=== PATIENT | female | born 1980 | race Caucasian/White ===

== ENCOUNTER 2021-05-15 09:22 | Emergency (ER) | payer OTHER, SELFPAY ==
--- NOTE | ~2021-05-15 | XR_ITS ---
EXAMINATION: XR knee LT 3V DATE: 05/15/2021 09:57 INDICATION: Left knee pain TECHNIQUE: Three views of the left knee were obtained. COMPARISON: 04/22/2014 FINDINGS: Alignment is normal. No fracture or osteochondral lesion. Joint spaces are normal with no e rosions. No joint effusion/synovitis. Soft tissues are unremarkable. IMPRESSION: 1. No acute osseous abnormality. Reviewed, dictated and finalized at location A.
[2021-05-15 09:23] VITALS: BP 136/68; PULSE 86; RESP 20; TEMP 36.2; O2SAT 100
[2021-05-15] MEDS: IBUPROFEN 600 MG TABLET PO (10:34)
--- NOTE | 2021-05-15 11:07 | ED.GENADULT ---
HPI - General Adult General Chief complaint: Extremity Injury, Lower Stated complaint: L KNEE PAIN Time Seen by Provider: 05/15/21 10:03 Source: patient, family and RN notes reviewed Mode of arrival: ambulatory Limitations: no limitations History of Present Illness HPI narrative: Patient is a 41-year-old female who presents to emergency department for evaluation of left knee injury was exercising when she felt a pop in the left knee has since had aching pain to the lateral and posterior aspect of the knee worse with weightbearing and activity patient denies other injuries or complaints has not had anything for pain presents per private vehicle Related Data Home Medications Medication Instructions Recorded Confirmed bupropion HCl mg PO 05/15/21 montelukast mg 05/15/21 Allergies Allergy/AdvReac Type Severity Reaction Status Date / Time No Known Allergies Allergy Verified 05/15/21 09:45 Review of Systems Review of Systems: All systems reviewed & are unremarkable except as noted in HPI and below PMFSH Surgical History Surgical History (Updated 05/15/21 @ 11:08 by Skyler Mckeon PA-C) H/O section H/O tubal ligation Social History Social History (Updated 05/15/21 @ 11:09 by Skyler Mckeon PA-C) Smoking status: Never smoker Gender identity (if verbalized by the patient): Female Exam Narrative: Exam Narrative: GENERAL: Well-appearing, well-nourished, and in no acute distress. HEAD: Normocephalic, atraumatic. EYES: PERRLA and EOMI. ENT: Nares clear, no rhinorrhea or epistaxis. Mucous membranes moist. CHEST: Clear to auscultation. No respiratory distress. No wheezes rales or rhonchi HEART: Regular rate and rhythm. No murmur heard. EXTREMITIES: Tenderness of the left knee joint no deformities noted SKIN: Warm, dry, no rash. NEURO: No focal deficits. Alert and oriented x3. Cranial nerves II through XII grossly intact. Neurovascularly intact PSYCH: Normal mood and affect. Course Course Emergency Course: Patient placed in Ramírez wrap knee immobilizer on crutches with orthopedic follow-up for internal derangement of the left knee neurovascularly intact made aware of x-ray findings agreeing with plan Vital Signs Vital signs: Vital Signs Temperature 97.2 F L 05/15/21 09:23 Pulse Rate 86 05/15/21 09:23 Respiratory Rate 20 05/15/21 09:23 Blood Pressure 136/68 05/15/21 09:23 Pulse Oximetry 100 05/15/21 09:23 Temperature 97.2 F L 05/15/21 09:23 Pulse Rate 86 05/15/21 09:23 Respiratory Rate 20 05/15/21 09:23 Blood Pressure 136/68 05/15/21 09:23 Pulse Oximetry 100 05/15/21 09:23 Medical Decision Making MDM Narrative Medical decision making narrative: Patients injury or pain is consistent with musculoskeletal etiology. No signs of neurological or vascular compromise on exam. Compartments and tisues are soft without signs of compartment syndrome. Pain is felt appropriate for further evaluation on an outpatient basis. Vital Signs Vital Signs: Vital Signs Temperature 97.2 F L 05/15/21 09:23 Pulse Rate 86 05/15/21 09:23 Respiratory Rate 20 05/15/21 09:23 Blood Pressure 136/68 05/15/21 09:23 Pulse Oximetry 100 05/15/21 09:23 Temperature 97.2 F L 05/15/21 09:23 Pulse Rate 86 05/15/21 09:23 Respiratory Rate 20 05/15/21 09:23 Blood Pressure 136/68 05/15/21 09:23 Pulse Oximetry 100 05/15/21 09:23 Imaging Data Radiologist's impression: ITS Impressions Knee X-Ray 05/15/21 10:18 IMPRESSION: 1. No acute osseous abnormality. Discharge Plan Discharge Clinical Impression: Acute internal derangement of knee Patient Disposition: Home, Self-Care Condition: Stable Instructions: Antibiotic Form, Arthralgia (ED) Additional Instructions: Wear brace and use crutches. No weight on the affected leg until able to bear weight without pain. Ice and elevate extremity. Pain medication as needed and directed.
== END 2021-05-15 11:19 | disposition home or self-care (01) ==
PROVIDERS: Emergency Provider Emergency Medicine; PCP Family Medicine
DX: M23.92 Unspecified internal derangement of left knee (principal)
CPT/HCPCS: 73562; 99283; A9270

== ENCOUNTER 2021-07-01 08:30 | Outpatient (RCR) | payer OTHER, SELFPAY ==
--- NOTE | 2021-06-02 09:28 | PTOPEVAL ---
PHYSICAL THERAPY EVALUATION AND PLAN OF CARE Thank you for referring Yun Rock to [facility].? The patient is scheduled to be seen for therapy? 2x/week for 4-6 weeks. Please review, sign, date and return this plan of care SERG. I agree with and certify that the following plan of care is medically necessary. Referring Physician Date Attending Provider: Gregory Crook MD Assessment Status Evaluation Diagnosis left knee pain Onset 05/15/2021 Subjective Information Was doing jumping exercises Query Text:As Reported By Patient/ and felt a pop in the left Family knee. X-ray is normal. She is walking into the clinic with crutches and walking WBAT on the left on her toe. States she does not use the crutches in her home. Without the crutches she still walks on the toe. If she tries to walk flat footed, she feels tingling feeling in the top of the kne. Self Report Pain Assessment Left Knee(s) Reported Pain Level 1 Other Pain Description states it is more uncomfortable than painful Lowest Pain Intensity 1 Greatest Pain Intensity 6 Pain Aggravating Factors Walking Other Pain Aggravating Factors using quad muscle Pain Score Pain Score 1: Self Report Interventions Used Interventions Used By Clinicians Exercise Pain Relief Interventions Used By Elevation,Ice,Medication Patient Lower Extremity Range of Motion Knee Range of Motion Left Knee Flexion Range of Motion - Active 85 Knee Extension Range of Motion - Active 0 Query Text: Lower Extremity Muscle Strength Testing Hip Strength Left Hip Flexion Strength 5 Normal Hip Extension Strength 4 Good Hip Abduction Strength 4 Good Knee Strength Left Knee Flexion Strength 4 Good Knee Extension Strength 3 Fair Palpation Assessment Palpation Palpation moderate hypomobility of patella; mild edema noted in poplitela fossa Gait Assessment Gait Assessment Ambulation Assistive Devices Crutches Weight Bearing Status - Left As Tolerated Weight Bearing Status - Right Full Maintains Weight Bearing Status Yes Ambulation Ability Independent Additional Ambulation Comments adjusted crutches to better fit her height; educatd in step through gait with heel
--- NOTE | 2021-07-01 08:58 | PTOPEVAL ---
PHYSICAL THERAPY DISCHARGE NOTE Thank you for referring Yun Rock to [facility].? Please review, sign, date and return this plan of care SERG. I agree with and certify that the following plan of care is medically necessary. Referring Physician Date Attending Provider: Gregory Crook MD Discharge Diagnosis left knee pain Onset 05/15/2021 Subjective Information After a month of therapy, Yun Query Text:As Reported By Patient/ is still having significant Family pain and swelling. Before she went back to work, she was doing really well with minimal pain and she was walking normally. Since she has been back to work for 2.5 weeks, she has significant increase in pain and swelling daily. She feels better with leuko tape for lateral patellar pull , but otherwise pain and swelling are persistent. States that over the weekend the pain will ease, but she is not doing the activities she would normally be doing. Pain Assessment Timing of Pain Assessment Timing of Pain Assessment Pre-Treatment Pain Scale Pain Scale Used Numeric (1 - 10) Self Report Pain Assessment Left Knee(s) Reported Pain Level 5 Pain Score Pain Score 5: Self Report Interventions Used Interventions Used By Clinicians Exercise,Taping Pain Relief Interventions Used By Elevation,Ice,Medication Patient Lower Extremity Range of Motion Knee Range of Motion Left Knee Flexion Range of Motion - Active 95 Knee Extension Range of Motion - Active 0 Query Text: Lower Extremity Muscle Strength Testing Hip Strength Left Hip Flexion Strength 5 Normal Hip Extension Strength 4+ Good + Hip Abduction Strength 4+ Good + Knee Strength Left Knee Flexion Strength 4+ Good + Knee Extension Strength 4+ Good + Knee Strength Comments 'discomfort' to MMT Palpation Assessment Palpation Palpation minimal hypomobility of patella; mild edema noted in poplitela fossa Gait Assessment Gait Assessment Ambulation Assistive Devices None Weight Bearing Status - Left As Tolerated Weight Bearing Status - Right Full Maintains Weight Bearing Status Yes Ambulation Ability Independent Additional Ambulation Comments mild antalgia noted t
== END 2021-07-01 16:26 | disposition home or self-care (01) ==
LOC: ANHPT 08:30
PROVIDERS: PCP Family Medicine; Visit Provider Orthopaedic Surgery
DX: M25.562 Pain in left knee (principal)
CPT/HCPCS: 97110; 97116; 97140; 97161

== ENCOUNTER 2021-07-08 08:07 | Outpatient (CLI) | payer OTHER, SELFPAY ==
--- NOTE | ~2021-07-08 | MR_ITS ---
EXAMINATION: MR knee LT wo con DATE: 07/08/2021 09:43 INDICATION: Left knee pain TECHNIQUE: Magnetic resonance imaging (MRI) of the left knee was performed without intravenous contra st. Sequences included coronal PD-weighted FSE, coronal PD-weighted FS FSE, sagittal T2-weighted FSE , sagittal PD-weighted FS FSE and axial PD weighted fat saturated FSE. COMPARISON: None. FINDINGS: Medial compartment: Medial meniscus is normal. Articular cartilage is normal. Lateral compartment: Lateral meniscus is normal. Articular cartilage is normal. Patellofemoral compartment: Small region of partial-thickness chondral ulceration and fissuring with minimal irregularity to the underlying cortex at the inferior aspect of the medial trochlea. Remaining patellofemoral cartilage i s normal. Ligaments and tendons: There is a tear of the posterolateral bundle of the anterior cruciate ligament. The anteromedial bund le appears to remain intact. The posterior cruciate ligament is normal. The medial collateral ligamen t and fibular collateral ligament complex are normal. The extensor mechanism is normal. The visualize d medial and lateral hamstring tendons as well as the iliotibial band are normal. Fluid: Small left knee joint effusion. No loose osteochondral bodies identified. Osseous/other: There is mild marrow edema without evident fracture line along the posterior rim of the medial and la teral tibial plateaus which could be related to bone contusion. Scattered geographic regions of patch y red marrow reexpansion with typical distribution in the distal femur and proximal tibia and fibula. No fracture or pathologic marrow replacing process. IMPRESSION: 1. Likely partial anterior cruciate ligament tear involving the posterolateral bundle of the anterior cruciate ligament with likely residual intact anteromedial bundle. 2. 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 3. Mild marrow edema along the posterior rim of the medial and lateral tibial plateau which could rep resent bone contusion without discrete fracture line. Reviewed, dictated and finalized at location B. IMPRESSION: 1. Likely partial anterior cruciate ligament tear involving the posterolateral bundle of the anterior cruciate ligament with likely residual intact anteromedi al bundle. 2. Small region of high-grade chondromalacia along the inferior aspect of the m edial trochlea. 3. Mild marrow edema along the posterior rim of the medial and lateral tibial p lateau which could represent bone contusion without discrete fracture line.
== END 2021-07-08 08:08 | disposition home or self-care (01) ==
LOC: ANHIMG 08:13
PROVIDERS: PCP Family Medicine; Visit Provider Orthopaedic Surgery
DX: M25.562 Pain in left knee (principal); R93.6 Abnormal findings on diagnostic imaging of limbs
CPT/HCPCS: 73721

== ENCOUNTER 2021-09-03 14:46 | Outpatient (CLI) | payer OTHER, SELFPAY ==
--- NOTE | ~2021-09-03 | MM_ITS ---
EXAMINATION: MM screening ashley BI w jazmyn HISTORY: Screening mammogram TECHNIQUE: Craniocaudal and mediolateral oblique 3-D tomosynthesis images were obtained and synthetic 2-D images were generated. CAD analysis was submitted and interpreted. COMPARISON: No prior mammogram is available for comparison at this institution. BREAST PARENCHYMAL COMPOSITION: The breasts are almost entirely fatty. FINDINGS: There is no evidence of suspicious mass, calcification, or architectural distortion to sugg est malignancy in either breast. There has been no suspicious interval change. IMPRESSION: 1. No mammographic evidence of malignancy. 2. Recommend routine screening mammography in one year. BI-RADS Category 1: Negative Reviewed, dictated and finalized at location A.
== END 2021-09-03 14:47 | disposition home or self-care (01) ==
LOC: ANHIMG 14:48
PROVIDERS: PCP Family Medicine; Visit Provider Obstetrics & Gynecology
DX: Z12.31 Encounter for screening mammogram for malignant neoplasm of breast (principal)
CPT/HCPCS: 77063; 77067

== ENCOUNTER 2022-08-05 12:30 | Outpatient (CLI) | payer OTHER, SELFPAY ==
[2022-08-05 13:07] LABS: Basophils Absolute Auto 0.1 K/mm3 (0.0-0.1); Basophils Percent Auto 0.5 % (0.2-1.2); Eosinophils Absolute Auto 0.4 K/mm3 (0-0.3); Eosinophils Percent Auto 4.2 % (0-4.4); Hematocrit 40.4 % (37.0-47.0); Hemoglobin 13.2 g/dL (12.0-15.0); Immature Granulocyte Absolute 0.02 K/mm3 (0.00-0.031); Immature Granulocyte Percent A 0.2 % (0-0.5); Lymphocytes Absolute Auto 3.35 K/mm3 (0.9-3.2); Lymphocytes Percent Auto 31.6 % (18.3-44.2); Mean Corpuscular HGB Conc 32.7 g/dl (32-36); Mean Corpuscular Hemoglobin 29.1 pg (26-34); Mean Corpuscular Volume 89.2 fl (80-100); Mean Platelet Volume 9.3 fl (7.4-10.4); Monocytes Absolute Auto 0.7 K/mm3 (0.1-0.6); Monocytes Percent Auto 6.9 % (2.6-8.5); Neutrophils Percent Auto 56.6 % (45.5-73.1); Platelet Count Result 338 k/mm3 (150-375); Red Blood Count 4.53 M/mm3 (4.2-5.4); Red Cell Distribution Width 12.4 % (11.5-14.5); White Blood Count 10.6 K/mm3 (4.5-10.0)
[2022-08-05 13:21] LABS: Alanine Aminotransferase 18 U/L (6-35); Albumin Level 4.2 g/dL (3.5-5.1); Alkaline Phosphatase 100 U/L (38-126); Anion Gap 11 mmol/L (8-16); Aspartate Amino Transferase 22 U/L (14-36); Bilirubin,Total 0.5 mg/dL (0.2-1.3); Blood Urea Nitrogen 9 mg/dL (7-17); Calcium 9.1 mg/dL (8.4-10.2); Carbon Dioxide 24 mmol/L (22-30); Chloride 102 mmol/L (98-107); Estimated Glomerular Filt Rate > 60; Glucose 86 mg/dL (65-110); Potassium 3.8 mmol/L (3.4-5.0); Sodium 137 mmol/L (137-145)
[2022-08-05 16:29] LABS: Vitamin D 25 Hydroxy 47.2 ng/mL
[2022-08-10 13:05] LABS: Sex Hormone Binding Globulin 34 nmol/L (17-124)
[2022-08-11 10:20] LABS: Testosterone Free 2.9 pg/mL (0.2-5.0)
[2022-08-12 01:07] LABS: Estradiol, Ultrasensitive 61 pg/mL
[2022-08-13 08:24] LABS: FSH 2.2 mIU/mL (***)
[2022-08-14 03:55] LABS: Thyroid Peroxidase Antibodies <1 IU/mL (<9)
== END 2022-08-05 12:31 | disposition home or self-care (01) ==
LOC: ANHLAB 12:32
PROVIDERS: PCP Family Medicine; Visit Provider Obstetrics & Gynecology
DX: N95.1 Menopausal and female climacteric states (principal)
CPT/HCPCS: 36415; 80053; 82306; 82607; 82670; 83001; 84270; 84402; 84439; 84443; 85025; 86376

== ENCOUNTER 2022-08-15 12:46 | Outpatient (CLI) | payer OTHER, SELFPAY ==
[2022-08-17 12:55] LABS: Triiodothyronine T3 Free 3.2 pg/mL (2.3-4.2)
== END 2022-08-15 12:47 | disposition home or self-care (01) ==
PROVIDERS: PCP Family Medicine; Visit Provider Obstetrics & Gynecology
DX: N95.1 Menopausal and female climacteric states (principal)
CPT/HCPCS: 36415; 84481

== ENCOUNTER 2022-09-03 07:27 | Outpatient (CLI) | payer OTHER, SELFPAY ==
[2022-09-07 09:27] LABS: Testosterone Total 18 ng/dL (2-45)
== END 2022-09-03 07:28 | disposition home or self-care (01) ==
LOC: ANHLAB 07:28
PROVIDERS: PCP Family Medicine; Visit Provider Obstetrics & Gynecology
DX: N95.1 Menopausal and female climacteric states (principal)
CPT/HCPCS: 36415; 84403

== ENCOUNTER 2022-10-31 17:04 | Outpatient (CLI) | payer OTHER, SELFPAY ==
[2022-11-03 15:16] LABS: FSH 4.1 mIU/mL (***)
[2022-11-04 12:46] LABS: Testosterone Total 171 ng/dL (2-45)
[2022-11-04 21:27] LABS: Estradiol, Ultrasensitive 63 pg/mL
== END 2022-10-31 17:05 | disposition home or self-care (01) ==
LOC: ANHLAB 17:05
PROVIDERS: PCP Family Medicine; Visit Provider Obstetrics & Gynecology
DX: N95.1 Menopausal and female climacteric states (principal)
CPT/HCPCS: 36415; 82670; 83001; 84403

== ENCOUNTER 2022-11-12 08:37 | Outpatient (CLI) | payer OTHER, SELFPAY ==
--- NOTE | ~2022-11-12 | MM_ITS ---
EXAMINATION: MM screening ashley BI w jazmyn HISTORY: Screening mammogram TECHNIQUE: Craniocaudal and mediolateral oblique 3-D tomosynthesis images were obtained and synthetic 2-D images were generated. CAD analysis was submitted and interpreted. COMPARISON: 09/03/2021 bilateral screening mammogram BREAST PARENCHYMAL COMPOSITION: The breasts are almost entirely fatty. FINDINGS: There is no evidence of suspicious mass, calcification, or architectural distortion to sugg est malignancy in either breast. There has been no suspicious interval change. IMPRESSION: 1. No mammographic evidence of malignancy. 2. Recommend routine screening mammography in one year. BI-RADS Category 1: Negative Reviewed, dictated and finalized at location A. [employer]
== END 2022-11-12 08:38 | disposition home or self-care (01) ==
PROVIDERS: Visit Provider Obstetrics & Gynecology
DX: Z12.31 Encounter for screening mammogram for malignant neoplasm of breast (principal)
CPT/HCPCS: 77063; 77067

== ENCOUNTER 2023-06-06 07:53 | Outpatient (CLI) | payer OTHER, SELFPAY ==
--- NOTE | ~2023-06-06 | MMUS_ITS ---
EXAMINATION: MM diagnostic ashley LT w jazmyn, US breast LT limited HISTORY: Palpable lump of the upper outer quadrant of the left breast TECHNIQUE: Craniocaudal, mediolateral, and mediolateral oblique 3-D tomosynthesis images of the left breast were performed and synthetic 2-D images were generated. CAD analysis was submitted and interpr eted. High resolution limited left breast ultrasound was performed. COMPARISON: 11/12/2022, 09/03/2021 BREAST PARENCHYMAL COMPOSITION: The breasts are almost entirely fatty. FINDINGS: MAMMOGRAPHIC FINDINGS: No suspicious mass, calcification, or architectural distortion are identified to suggest malignancy. There has been no suspicious interval change. No mammographic correlate is identified for the reporte d palpable abnormality of concern. ULTRASOUND: There is no evidence of focal abnormal solid or cystic mass in the vicinity of the reported palpable abnormality of concern. IMPRESSION: 1. No specific mammographic or sonographic correlate is identified for the reported palpable abnormal ity of concern. Further evaluation at this time should be based on clinical assessment. Continued fol low-up physical examination is recommended. 2. Recommend routine screening mammography, due in six months. BI-RADS Category 1: Negative Reviewed, dictated and finalized at location D. IMPRESSION: 1. No specific mammographic or sonographic correlate is identified for the repo rted palpable abnormality of concern. Further evaluation at this time should be based on clinical assessment. Continued follow-up physical examination is shea mmended. 2. Recommend routine screening mammography, due in six months. BI-RADS Category 1: Negative
== END 2023-06-06 07:54 ==
PROVIDERS: PCP Family Medicine; Visit Provider Obstetrics & Gynecology
DX: N63.21 Unspecified lump in the left breast, upper outer quadrant (principal)
CPT/HCPCS: 76642; 77061; 77065; G0279

== ENCOUNTER 2024-04-22 23:50 | Emergency (ER) | payer OTHER, SELFPAY ==
--- NOTE | ~2024-04-22 | CT_ITS ---
CT scan of the Neck Technique: 2.5 mm axial scans were obtained through the neck after intravenous administration of 75 c c Omnipaque 350. Coronal and sagittal reconstructions of the neck were obtained. Dose reduction techn ique was used on this scan by utilizing automated exposure control and iterative reconstruction techn ique. The dose-length product (DLP) was 608.69 mGy-cm. Clinical History: Right pharyngeal swallowing Findings: There is a 1 cm probable early right peritonsillar abscess with surrounding edematous change of the r ight palatine tonsil and mild mass effect upon the airway which is deviated to the left at this level . There is mild infiltration of right parapharyngeal fat. There are mildly prominent bilateral level 2 cervical lymph nodes, presumably reactive. Possible prior resection of the left submandibular gland , which is not clearly visualized. Parotid glands are unremarkable. No prevertebral soft tissue swelling. No retropharyngeal abscess evident. The thyroid gland appears normal. Images of the lung apices reveal no abnormalities. Visualized paran cinda sinuses and mastoid air cells are clear. Impression: 1 cm right peritonsillar abscess with surrounding inflammatory change and mild mass effect upon the a irway. Mildly prominent, presumably reactive, level 2 cervical lymph nodes bilaterally. Reviewed, dictated and finalized at location . Impression: 1 cm right peritonsillar abscess with surrounding inflammatory change and mild mass effect upon the airway. Mildly prominent, presumably reactive, level 2 cervical lymph nodes bilaterally .
[2024-04-22 23:53] VITALS: BP 151/91; PULSE 88; RESP 20; TEMP 36.6; O2SAT 100
[2024-04-23 00:03] VITALS: BP 151/91; PULSE 88; RESP 20; TEMP 36.6; O2SAT 100
[2024-04-23 00:05] VITALS: BP 151/91; PULSE 88; RESP 20; TEMP 36.6; O2SAT 100
[2024-04-23 00:32] VITALS: PULSE 86; RESP 17; O2SAT 99
[2024-04-23 00:36] LABS: Strep Group A RT-PCR NOT DETECTED (Negative)
--- NOTE | 2024-04-23 01:05 | ED.GENADULT ---
HPI - General Adult General Chief complaint: Unspecified Stated complaint: feels like throat is closing Time Seen by Provider: 04/23/24 00:54 History of Present Illness HPI narrative: 43-year-old female presents to the emergency department for right-sided throat pain and swelling that started today. Patient states at 12:00 p.m. today she noticed some pain to her right throat, worse with swallowing. she gargled salt water today without improvement. States she went to bed and woke up around 11:00 p.m. with the sensation that her throat was swollen on the right side which is what prompted her to come to the ED today. She denies recent sick contacts, fever, nausea or vomiting . Triage note states that the patient reported difficulty breathing, however she denies this to me. Related Data Home Medications Medication Instructions Recorded Confirmed cetirizine 10 mg capsule (Zyrtec) 10 mg PO DAILY PRN 05/20/21 10/09/23 acetaminophen 650 mg 650 mg PO Q12H 08/12/21 10/09/23 tablet,extended release (Tylenol Arthritis Pain) acyclovir 200 mg capsule 400 mg PO DAILY PRN 03/14/24 montelukast 10 mg tablet 10 mg PO DAILY 03/14/24 Allergies Allergy/AdvReac Type Severity Reaction Status Date / Time No Known Allergies Allergy Verified 04/23/24 00:30 Review of Systems Review of Systems: CONSTITUTIONAL: Denies fever, chills, or sweats. EYES: Denies visual changes, redness, or discharge. ENT: See HPI CARDIOVASCULAR: Denies chest pain, palpitations, or edema. RESPIRATORY: Denies cough or dyspnea. GASTROINTESTINAL: Denies abdominal pain, nausea, vomiting, or diarrhea. GENITOURINARY: Denies dysuria or hematuria. SKIN: Denies rash or itching. MUSCULOSKELETAL: Denies back pain, joint pain, or myalgia. NEUROLOGIC: Denies headache, numbness, or weakness. PSYCHIATRIC: Denies anxiety or depression. [facility] Past Medical History Medical History Anxiety Asthma Body mass index (BMI) greater than or equal to 40 in adult Chronic asthma without complication Left breast mass Left knee pain Lymph nodes enlarged (~2010) removed on left side Screening for lipid disorders Screening for thyroid disorder Screening mammogram, encounter for Wellness examination Surgical History Surgical History H/O section H/O skin graft age 3 from dog bite H/O tubal ligation Family History Family History Grandparent Diabetes mellitus Cerebrovascular accident H/O ovarian cancer maternal grandmother Father Heart disease Hypertension Acute myocardial infarction Mother Hypertension Osteoporosis Sibling FH: testicular cancer brother Other Non-Hodgkin lymphoma maternal aunt Other Family history of malignant neoplasm Family history of malignant neoplasm of breast Social History Social History Smoking status: Never smoker Second hand tobacco smoke exposure: No Alcohol intake: current Drinks per week: 2 Alcohol use details: social Substance use: never Substance use type: does not use Current Housing: Decline to Answer Concerned About Future Housing: Decline to Answer Difficulty Paying Gas/Electric Bills: Decline to Answer Difficulty Paying for Meds: Decline to Answer Currently Unemployed: Decline to Answer Education: Decline to Answer Difficulty w/ Childcare or Family Care: Decline to Answer Living arrangements: with family Occupation/Education: occupation Additional occupation/education comments: [employer] Gender identity (if verbalized by the patient): Female Sexual Orientation (if Verbalized by the Patient): Straight or Heterosexual Exam Narrative: GENERAL: Well-appearing, well-nourished, and in no acute d
[2024-04-23 01:33] LABS: Basophils Percent Auto 0.4 % (0.2-1.2); Eosinophils Absolute Auto 0.4 K/mm3 (0-0.3); Eosinophils Percent Auto 3.3 % (0-4.4); Hematocrit 43.1 % (37.0-47.0); Hemoglobin 14.1 g/dL (12.0-15.0); Immature Granulocyte Absolute 0.04 K/mm3 (0.00-0.031); Immature Granulocyte Percent A 0.4 % (0-0.5); Lymphocytes Absolute Auto 2.61 K/mm3 (0.9-3.2); Lymphocytes Percent Auto 23.3 % (18.3-44.2); Mean Corpuscular HGB Conc 32.7 g/dl (32-36); Mean Corpuscular Hemoglobin 29.2 pg (26-34); Mean Corpuscular Volume 89.2 fl (80-100); Mean Platelet Volume 9.8 fl (7.4-10.4); Monocytes Absolute Auto 0.9 K/mm3 (0.1-0.6); Monocytes Percent Auto 7.7 % (2.6-8.5); Neutrophils Absolute Auto 7.3 K/mm3 (1.3-6.7); Neutrophils Percent Auto 64.9 % (45.5-73.1); Platelet Count Result 299 k/mm3 (150-375); Red Blood Count 4.83 M/mm3 (4.2-5.4); Red Cell Distribution Width 12.4 % (11.5-14.5); White Blood Count 11.2 K/mm3 (4.5-10.0)
[2024-04-23 01:46] LABS: Alanine Aminotransferase 18 U/L (6-35); Albumin Level 4.2 g/dL (3.5-5.1); Alkaline Phosphatase 88 U/L (38-126); Anion Gap 4 mmol/L (4-12); Aspartate Amino Transferase 24 U/L (14-36); Bilirubin,Total 0.7 mg/dL (0.2-1.3); Blood Urea Nitrogen 13 mg/dL (7-17); Calcium 8.9 mg/dL (8.4-10.2); Carbon Dioxide 27 mmol/L (22-30); Chloride 106 mmol/L (98-107); Estimated CRCL calculation 84 ml/min; Estimated Glomerular Filt Rate > 60; Glucose 100 mg/dL (65-110); Potassium 4.1 mmol/L (3.4-5.0); Sodium 137 mmol/L (137-145)
[2024-04-23 02:04] LABS: Monoscreen Negative (Negative); Negative Monotest Control Negative (Negative); Positive Monotest Control Positive (Positive)
[2024-04-23 02:07] VITALS: BP 124/94; PULSE 80; RESP 18; O2SAT 98
[2024-04-23 02:09] LABS: Influenza A QL RT-PCR Negative (Negative); Influenza B QL RT-PCR Negative (Negative); RSV RNA, RT-PCR Negative (Negative); SARS-CoV-2 RNA PCR Negative (Negative)
[2024-04-23 02:10] LABS: CRP 1.8 mg/dL (<1.0)
[2024-04-23 02:29] LABS: Erythrocyte Sedimentation Rate 29 mm/hr (0-20)
[2024-04-23] MEDS: dexAMETHasone SOD PHOS INJ 10 MG/ML 1 ML VIAL IV PUSH (02:52)
[2024-04-23] MEDS: CLINDAMYCIN HCL 150 MG CAP 300 MG PO (02:53)
== END 2024-04-23 03:00 | disposition home or self-care (01) ==
PROVIDERS: Emergency Provider Physician Assistant; PCP Family Medicine
DX: J36 Peritonsillar abscess (principal); Z20.822 Contact with and (suspected) exposure to COVID-19; J45.909 Unspecified asthma, uncomplicated; Z79.899 Other long term (current) drug therapy
CPT/HCPCS: 36415; 70491; 80053; 85025; 85652; 86140; 86308; 87637; 87651; 96374; 99284; A9270; J1100; Q9967

== ENCOUNTER 2024-05-03 07:53 | Outpatient (CLI) | payer OTHER, SELFPAY ==
--- NOTE | ~2024-05-03 | MM_ITS ---
EXAMINATION: MM screening ashley BI w jazmyn HISTORY: Screening TECHNIQUE: Craniocaudal and mediolateral oblique 3-D tomosynthesis images were obtained and synthetic 2-D images were generated. CAD analysis was submitted and interpreted. COMPARISON: Comparison to multiple prior studies sequentially, with oldest reviewed study dated 08/14. BREAST PARENCHYMAL COMPOSITION: Not dense: There are scattered areas of fibroglandular density. FINDINGS: There is no evidence of suspicious mass, calcification, or architectural distortion to sugg est malignancy in either breast. There has been no suspicious interval change. IMPRESSION: 1. No mammographic evidence of malignancy. 2. Recommend routine screening mammography in one year. BI-RADS Category 1: Negative Reviewed, dictated and finalized at location B.
== END 2024-05-03 07:54 | disposition home or self-care (01) ==
PROVIDERS: PCP Family Medicine; Visit Provider Obstetrics & Gynecology
DX: Z12.31 Encounter for screening mammogram for malignant neoplasm of breast (principal)
CPT/HCPCS: 77063; 77067

== ENCOUNTER 2025-08-29 13:59 | Outpatient (CLI) | payer BC, SELFPAY ==
--- NOTE | ~2025-08-29 | MM_ITS ---
EXAMINATION: MM screening ashley BI w jazmyn HISTORY: Screening TECHNIQUE: Craniocaudal and mediolateral oblique 3-D tomosynthesis images were obtained and synthetic 2-D images were generated. CAD analysis was submitted and interpreted. COMPARISON: 11/12/2022 BREAST PARENCHYMAL COMPOSITION: Not Dense: The breasts are almost entirely fatty. FINDINGS: There is no evidence of suspicious mass, calcification, or architectural distortion to suggest malignancy in either breast. [There has been no significant interval change. IMPRESSION: 1. No mammographic evidence of malignancy. Recommend routine screening mammography in one year. BI-RADS Category 1: Negative Reviewed, dictated, and finalized at Location A. Reviewed, dictated and finalized at location Q. IMPRESSION: 1. No mammographic evidence of malignancy. Recommend routine screening mammogra phy in one year. BI-RADS Category 1: Negative
--- OUTSIDE RECORDS SUMMARY | 2025-08-29 14:04 | XMS_ITS | Data Portability ---
Author Organization [facility] [employer], Main Office Address [address] [place] [address] Assessment No assessment recorded. Plan of Treatment Reminders Order Date Submit Date Provider Last Modified By Organization Details Last Modified Time Details Appointments None recorded. Lab None recorded. Referral None recorded. Procedures None recorded. Surgeries None recorded. Imaging None recorded. Medication Orders phentermine 37.5 mg tablet 2023 024 4 [facility] #[id number], [address], [place], [place], [id number], 4 15:13:07 Saxenda 3 mg/0.5 mL (18 mg/3 mL) subcutaneou s pen injector 2022 023 [id number], [address], [place], [id number], 3 08:25:20 Saxenda 3 mg/0.5 mL (18 mg/3 mL) subcutaneou s pen injector 2022 023 [id number], [address], [place], [id number], 3 10:05:48 Patient TargetsNo targets recorded. Patient InstructionsNo instructions recorded. Reason for Referral None Reported. Results Created Date Observation Date Name Description Value Unit Range Abnormal Flag Note LastModifiedBy Organization Detail LastModifiedTime Result Notes None recorded. Problems Name Problem SNOMED Code Status Onset Date Resolution Date Notes Provider Name and Address Organization Details Recorded Time Amenorrhe a 03982522 Active Not Available [facility] 3 02:48:21 Asthma 376776021 Active Not Available [facility] 3 02:48:21 Blood pressure above reference range 76920514 Active Not Available [facility] 3 02:48:21 Depressiv e disorder 35891263 Active Not Available [facility] 3 02:48:21 Obesity 131163059 Active Not Available [facility] 3 02:48:21 Eczema 72924623 Active Not Available [facility] 3 02:48:21 Seasonal allergy 493954172 Active Not Available [facility] 3 02:48:21 Diabetes mellitus 73693269 Active BORDERLIN E Not Available [facility] 3 02:48:21 Fatigue 60393221 Active Not Available [facility] 3 02:48:21 Kidney stone 15451874 Active Not Available [facility] 3 02:48:21 Pain of left knee joint 45714575550 4107 Active 2022 USMAN Hernandez [address], [place] [address], [place], [address] , [place] 3 08:11:30 Morbid obesity 562760684 Active 2023 USMAN Hernandez [address], [address], [place], [address] , [place] 4 08:43:25 Problem Notes None recorded. Procedures Surgical History Date Name Laterality Status Provider Name and Address Organization Details Recorded Time 1 ligation of bilateral fallopian tubes completed Not Available [facility] 01/11/2023 02:42:54 0 Date of Last Pap Smear completed Not Available [facility] 01/11/2023 02:42:51 6 delivery completed Not Available [facility] 01/11/2023 02:42:54 Skin Graft completed Not Available [facility] 01/11/2023 02:42:54 Imaging Results None recorded. Procedure Notes None recorded. Medical Equipment None Reported. Allergies No known drug allergies Medications Name Sig Start Date Stop Date Status Note LastModified by Organization Details LastModified Time cetirizine 5 mg-pseudoep hedrine ER 120 mg tablet,exte nded release,12h r Take 1 tablet every 12 hours by oral route. active Not Available Not Available No t Available Mirena 21 mcg/24 hr (up to 8 years) 52 mg intrauterin e device Take 1 device by intrauter ine route. active Not Available Not Available No t Available Qvar 80 mcg/actuati on Metered Aerosol oral inhaler active Not Available Not Available Not Available prednisone 10 mg tablet TAKE 6 TABS ON DAY 1 DIRECTED AND DECREASE BY 1 TAB EACH DAY FOR A TOTAL OF 6 DAYS active Not Available Not Available No t Available albuterol sulfate 2.5 mg/3 mL (0.083 %) solution for nebulizatio n USE 1 VIAL VIA NEBULIZER EVERY 6 HOURS NEEDED active Not Available Not Available No t Available azithromyci n 250 mg tablet TAKE 2 TABLETS BY MOUTH TODAY, THEN TAKE 1 TABLET DAILY FOR 4 DAYS active Not Available Not Available No t Available ibuprofen 800 mg tablet 05/05 completed Not Available Not Available Not Available alprazolam 1 mg tablet Take 1 tablet twice a day by oral route as needed. 07/28 completed Not Available Not Available Not Available fluconazole 150 mg tablet TAKE 1 TABLET BY MOUTH EVERY 72 HOURS 06/29 completed Not Available Not Available Not Available glyburide 2.5 mg tablet TAKE 1 TABLET BY MOUTH DAILY 07/28 completed Not Available Not Available Not Available hydrocodone 5 mg-acetamin ophen 325 mg tablet TAKE 1 TO 2 TABLETS BY MOUTH EVERY 4 TO 6 HOURS NEEDED FOR PAIN 07/28 completed Not Available Not Available Not Available Medrol (Juan) 4 mg tablets in a dose pack Take 1 dose pk by oral routeas directed 06/29 completed Not Available Not Available Not Available prednisone 20 mg tablet TAKE 2 TABLETS BY MOUTH EVERY DAY FOR 5 DAYS 06/29 completed Not Available Not Available Not Available prednisone 5 mg tablet 06/29 completed Not Available Not Available Not Available phentermine 15 mg capsule TAKE ONE CAPSULE BY MOUTH EVERY DAY 05/09 completed Not Available Not Available Not Available Zyrtec 10 mg tablet Take 1 tablet every day by oral route. 2016 active zyrte c-d Not Available Not Available Not Available phentermine 37.5 mg tablet TAKE 1 TABLET BY MOUTH DAILY active Not Available Not Available No t Available acetaminoph en 300 mg-codeine 30 mg tablet TAKE 1 OR 2 TABLETS BY MOUTH EVERY 4 TO 6 HOURS NEEDED FOR PAIN 07/28 completed Not Available Not Available Not Available acyclovir 400 mg tablet TAKE 1 TABLET BY MOUTH THREE TIMES DAILY FOR 7 DAYS active Not Available Not Available No t Available sulfamethox azole 800 mg-trimetho prim 160 mg tablet TAKE 1 TABLET BY MOUTH EVERY 12 HOURS 06/29 completed Not Available Not Available Not Available acetaminoph en 500 mg tablet 05/05 completed Not Available Not Available Not Available prednisone 10 mg tablets in a dose pack Take 1 dose pk by oral route for 6 days. active Not Available Not Available No t Available alprazolam 0.25 mg tablet Take 1 tablet twice a day by oral route. active Not Available Not Available No t Available benzonatate 100 mg capsule TAKE ONE CAPSULE BY MOUTH 3 TIMES A DAY NEEDED 04/11 completed Not Available Not Available Not Available nitrofurant oin macrocrysta l 100 mg capsule TAKE 1 CAPSULE BY MOUTH EVERY 12 HOURS WITH FOOD FOR 5 DAYS active Not Available Not Available No t Available triamcinolo ne acetonide 0.1 % topical ointment Apply 1 applicati on twice a day by topical route as needed. active Not Available Not Available No t Available oxycodone 5 mg capsule 05/05 completed Not Available Not Available Not Available docusate sodium 100 mg capsule Take 1 capsule twice a day by oral route. 05/05 completed Not Available Not Available Not Available montelukast 10 mg tablet TAKE 1 TABLET BY MOUTH EVERY DAY active Not Available Not Available No t Available mupirocin 2 % topical ointment APPLY TOPICALLY TO THE AFFECTED AREA TWICE DAILY active Not Available Not Available No t Available prednisone 5 mg tablets in a dose pack Take 1 dose pk as needed by oral route. 06/29 completed Not Available Not Available Not Available ibuprofen 600 mg tablet TAKE 1 TABLET BY MOUTH EVERY 6 HOURS NEEDED FOR PAIN active Not Available Not Available No t Available fluticasone propionate 50 mcg/actuati on nasal spray,suspe nsion SPRAY 2 SPRAYS INTO EACH NOSTRIL EVERY DAY active Not Available Not Available No t Available sertraline 50 mg tablet Take 1 tablet every day by oral route. active Not Available Not Available No t Available ipratropium bromide 0.02 % solution for inhalation 2.5 ML per neb x 1 10/03 completed Not Available Not Available Not Available acyclovir 5 % topical cream APPLY TO THE AFFECTED AREA(S) BY TOPICAL ROUTE 5 TIMES PER DAY 09/23 completed Not Available Not Available Not Available bupropion HCl XL 300 mg 24 hr tablet, extended release TAKE 1 TABLET BY MOUTH EVERY DAY active Not Available Not Available No t Available bupropion HCl XL 150 mg 24 hr tablet, extended release TAKE 1 TABLET BY MOUTH EVERY DAY active Not Available Not Available No t Available Spiriva with HandiHaler 18 mcg and inhalation capsules Inhale 1 capsule every day by inhalatio n route. 04/03 completed Not Available Not Available Not Available nitrofurant oin monohydrate /macrocryst als 100 mg capsule TAKE 1 CAPSULE BY MOUTH EVERY 12 HOURS WITH FOOD FOR 7 DAYS active Not Available Not Available No t Available Flovent HFA 220 mcg/actuati on aerosol inhaler Inhale 1 puff twice a day by inhalatio n route. 02/06 completed Not Available Not Available Not Available Atrovent HFA 17 mcg/actuati on aerosol inhaler INHALE 2 PUFFS BY MOUTH EVERY 6 HOURS active Not Available Not Available No t Available Nortrel 35 (28) 02/06 completed Not Available Not Available Not Available BD Ultra-Fine Short Pen Needle 31 gauge x 5/16 USE DIRECTED WITH SAXENDA PENS active Not Available Not Available No t Available ProAir HFA 90 mcg/actuati on aerosol inhaler INHALE 2 PUFFS BY MOUTH EVERY 4 TO 6 HOURS NEEDED active Not Available Not Available No t Available Symbicort 80 mcg-4.5 mcg/actuati on HFA aerosol inhaler Inhale 2 puffs twice a day by inhalatio n route. 04/11 completed Not Available Not Available Not Available Cyclafem 35 (28) 1 mg-35 mcg tablet TAKE 1 TABLET BY MOUTH EVERY DAY 10/03 completed Not Available Not Available Not Available Saxenda 3 mg/0.5 mL (18 mg/3 mL) subcutaneou s pen injector Start: 0.6 mg SC qd x1wk, then incr. dose by 0.6 mg/day qwk to target 3 mg SC qd; Max: 3 mg/day 2022 active Not Available Not Available Not Avai lable Saxenda active Not Available Not Avail able Not Available Ozempic 0.25 mg or 0.5 mg (2 mg/1.5 mL) subcutaneou s pen injector Inject by subcutane ous route for 56 days. active Not Available Not Available No t Available Breztri Aerosphere 160 mcg-9mcg-4. 8mcg/actuat ion HFA aerosol inhaler Inhale 2 puffs twice a day by inhalatio n route. 2021 active Not Available Not Available Not Avai lable Zepbound 2.5 mg/0.5 mL subcutaneou s pen injector ADMINISTE R 2.5 MG UNDER THE SKIN EVERY WEEK active Not Available Not Available No t Available Vitals Date Recorded Body mass index (BMI) Body height Oxygen saturation Oxygen saturation in Arterial blood by Pulse oximetry Heart rate Body temperature Body weight Systolic And Diastolic Provider Name and Address Organization Details Last Updated DateTime 3 43.4 kg/m2 162.56 cm 97 % 97 % 100 /min 96.6 [degF] 817614. 87 g 126/70 mm[Hg] Not Available [facility] 3 02:45:25 Date Recorded Body height Body mass index (BMI) Body weight Body temperature Heart rate Oxygen saturation Oxygen saturation in Arterial blood by Pulse oximetry Systolic And Diastolic Provider Name and Address Organization Details Last Updated DateTime 4 162.56 cm 43.8 kg/m2 363681. 05 g 98.2 [degF] 90 /min 98.01 % 98.01 % 132/88 mm[Hg] Belinda Person RN [place] [employer] 4 08:38:55 Date Recorded Body mass index (BMI) Body height Oxygen saturation Oxygen saturation in Arterial blood by Pulse oximetry Heart rate Body temperature Body weight Systolic And Diastolic Provider Name and Address Organization Details Last Updated DateTime 2 42.9 kg/m2 162.56 cm 99 % 99 % 85 /min 97.1 [degF] 269354. 09 g 128/70 mm[Hg] Not Available [facility] 3 02:45:24 Date Recorded Body height Body mass index (BMI) Body weight Body temperature Heart rate Oxygen saturation Oxygen saturation in Arterial blood by Pulse oximetry Systolic And Diastolic Provider Name and Address Organization Details Last Updated DateTime 3 162.56 cm 42.2 kg/m2 231028. 72 g 95.8 [degF] 68 /min 99 % 99 % 122/80 mm[Hg] REANNA Christine [facility] [employer] [facility] 3 09:26:33 Date Recorded Body height Body mass index (BMI) Body weight Body temperature Heart rate Oxygen saturation Oxygen saturation in Arterial blood by Pulse oximetry Systolic And Diastolic Provider Name and Address Organization Details Last Updated DateTime 3 162.56 cm 42.4 kg/m2 469343. 32 g 98.5 [degF] 88 /min 97 % 97 % 136/80 mm[Hg] REANNA Christine [place] [employer] [facility] 3 08:06:10 Social History Question Answer Notes LastModified by [facility] Details LastModified Time Tobacco Smoking Status Never Smoker Not Available [facility] 01/11/2023 02:35:25 If You Are , What Was Your Level Of Alcohol Consumption Prior To ? None [id number] Information not available 01/11/2023 What Is Your Level Of Caffeine Consumption? Occasional [id number] Information not available 01/11/2023 In The 14 Days Before Symptom Onset, Have You Had Close Contact With A Laboratory-confirm ed COVID-19 While That Case Was Ill? No [id number] Information not available 01/11/2023 In The 14 Days Before Symptom Onset, Have You Had Close Contact With A Person Who Is Under Investigation For COVID-19 While That Person Was Ill? No [id number] Information not available 01/11/2023 What Type Of Diet Are You Following? REGULAR [id number] Information not available 01/11/2023 Which Illicit Or Recreational Drugs Have You Used? No [id number] Information not available 01/11/2023 Do You Have Any Dietary Restrictions? No [id number] Information not available 01/11/2023 Sex: Unknown Functional Status Question Answer Note LastModified by [facility] Details LastModified Time Do you use any illicit or recreational drugs? No [id number] Information not available 01/11/2023 What is your level of alcohol consumption? Occasional [id number] Information not available 01/11/2023 Do you or have you ever used smokeless tobacco? Never used smokeless tobacco [id number] Information not available 01/11/2023 Do you or have you ever used e-cigarettes or vape? Never used electronic cigarettes [id number] Information not available 01/11/2023 What is your exercise level? Heavy [id number] Information not available 01/11/2023 Mental Status None recorded. Family History Nothing Reported Notes:CAD, no breast/colon/o vary cancer Medical History Condition Response ANXIETY DISORDER Y Gynecological History Statement/Question Response Date of Last Mammogram 09/03/2021 Date of LMP Menses Monthly N Date of Last Pap Smear 03/18/2020 Current Control Method Tubal Ligat ion Breast Problems no Discharge no Obstetrics History GPAL:G 3 P 3 0 0 3 Type Value Full Term 3 Living 3 Total 3 Immunizations Vaccine Type Date Status Note Provider Nam e and Address Organization Details Recorded Time Influenza, split virus, trivalent, PF 3 completed Not Available [facility] 01/11/2023 02:55:30 pneumococcal, unspecified formulation 2 completed Not Available [facility] 01/11/2023 02:55:31 Influenza, split virus, trivalent, preservative 2 completed Not Available [facility] 01/11/2023 02:55:31 Past Encounters Encounter ID Performer Location Encounter Start Date Encounter Closed Date Diagnosis/Indication Diagnosis SNOMED-CT Code Diagnosis ICD10 Code Diagnosis IMO Codes Diagnosis Note [id number] [facility] _ATHENA_M IGRATION_ DEFAULT_1 _1 , 02/03/2021 00:00:00 02/03/2021 10:41:37 [id number] Kalli Ashley MD [facility] Primary Care [address] [address] 05/05/2021 00:00:00 05/11/2021 13:57:38 [id number] Kalli Ashley MD [facility] [address] [place] [address] 09/23/2021 00:00:00 09/23/2021 08:23:43 [id number] CHRISTINE Fuentes [facility] [address] [facility] [address] [place] [address] 06/29/2022 00:00:00 06/29/2022 13:37:10 [id number] CHRISTINE Fuentes [facility] [address] [facility] [address] [place] [address] 11/18/2022 00:00:00 11/18/2022 19:16:11 [id number] USMAN Hernandez [facility] Primary [facility] [address] [facility] [address] [place] [address] 06/29/2023 09:19:06 06/29/2023 09:51:15 Dietary management surveillance 422090330 Z71.3 Encouraged fresh fruits and veggiesInc rease water intakeGet daily exerciseHa s had good results with Saxenda-wi ll reorder [id number] Kalli Ashley MD [facility] Primary [facility] [address] [facility] [address] [place] [address] 07/28/2023 08:00:36 07/28/2023 08:16:49 Dietary management surveillance 442081953 Z71.3 No ASE noted with being on this med, pt also used this in the pastRefill of saxenda providedpt would like to f/u in 3 months Pain of le ft knee joint 1899712105 38696 M25.562 r/t recent injury, pt noted large amount of swelling and painf/u with ortho Dr. Crook's office-cor tisone injection 16Scope likely in the future with Dr. Crook [id number] USMAN Hernandez [facility] Primary [facility] [address] [facility] [address] [place] [address] 12/08/2023 08:25:46 12/08/2023 09:25:24 Morbid obesity 611783177 E66.01 -pt has been doing weight watchers for the last month-also does intermitte nt fasting-akhil briscoe is planning to start going to the gym three times/week -she is wanting to restart phentermin e, used in the past with no ASE noted-refi ll given Health Concerns Section Related Observation LastModified by Organization Detai ls LastModified Time None Recorded Concern Status LastModified by Organization Details LastModified Time None Recorded Advance Directives Directive None Recorded Payers Insurance Date Sequence Insurance Name Policy Number Policy Mast Covered Member ID Mast Member ID Guarantor Name 02/06/2024 1 [employer] [facility] (PPO) Yun Marte [id number] Yun Marte 03/05/2024 1 [employer] (MEDICARE REPLACEMENT/ ADVANTAGE - PPO) Yun Marte [id number] Yun Marte 02/06/2024 1 [employer] (PPO) [id number] Yun Marte [id number] Yun Marte 12/08/2023 1 [employer] (POS) [id number] Neville Marte [id number] Yun Marte 02/06/2024 2 [place] [facility] [employer] Yun Smith [id number] Yun Marte Notes Date Note Type Note Provider Name and Address Organization Details Recorded Time 06/29/2023 text/html Pt is here for f/u r/t weight loss meds Recently went to weight loss clinic in April and was started on Saxenda. No side effects with this medication. No binge eating with this med. Cravings are under control. Would like to restart this med JENNIFER Hernandez-Farooq [address], [address], [place], [address], [place] 06/29/2023 10:06:55 07/28/2023 text/html Pt is here for med f/u JENNIFER Hernandez-C [address], [address], [place], [address], [employer] 07/28/2023 08:27:09 12/08/2023 text/html Pt is here for weight loss med f/u PAWAN HernandezP-C [address], [address], [place], [address], [employer] 12/08/2023 08:53:04 OBGyn Episode No OBEpisode recorded.
== END 2025-08-29 14:00 | disposition home or self-care (01) ==
LOC: ANHFOHIMG 14:02
PROVIDERS: Visit Provider Obstetrics & Gynecology
DX: Z12.31 Encounter for screening mammogram for malignant neoplasm of breast (principal)
CPT/HCPCS: 77063; 77067

== ENCOUNTER 2025-11-12 07:17 | Outpatient (CLI) | payer BC, SELFPAY ==
--- OUTSIDE RECORDS SUMMARY | 2025-11-12 07:21 | XMS_ITS | Data Portability ---
Author Organization [facility], Main Office Address [address] [place] [address] Assessment No assessment recorded. Plan of Treatment Reminders Order Date Submit Date Provider Last Modified By Organization Details Last Modified Time Details Appointments None recorded. Lab None recorded. Referral None recorded. Procedures None recorded. Surgeries None recorded. Imaging None recorded. Medication Orders phentermine 37.5 mg tablet 2023 024 [email or web address] 4 [facility] #[id number], [address], [place], [place], [id number], 4 15:13:07 Saxenda 3 mg/0.5 mL (18 mg/3 mL) subcutaneou s pen injector 2022 023 [facility] #[id number], [address], [place], [id number], 3 08:25:20 Saxenda 3 mg/0.5 mL (18 mg/3 mL) subcutaneou s pen injector 2022 023 [facility] #[id number], [address], [place], [id number], 3 10:05:48 Patient TargetsNo targets recorded. Patient InstructionsNo instructions recorded. Reason for Referral None Reported. Results Created Date Observation Date Name Description Value Unit Range Abnormal Flag Note LastModifiedBy Organization Detail LastModifiedTime Result Notes None recorded. Problems Name Problem SNOMED Code Status Onset Date Resolution Date Notes Provider Name and Address Organization Details Recorded Time Amenorrhe a 34100536 Active Not Available [facility] 3 02:48:21 Asthma 277721744 Active Not Available [facility] 3 02:48:21 Blood pressure above reference range 51929741 Active Not Available [facility] 3 02:48:21 Depressiv e disorder 61605334 Active Not Available [facility] 3 02:48:21 Obesity 455565081 Active Not Available [facility] 3 02:48:21 Eczema 62112345 Active Not Available [facility] 3 02:48:21 Seasonal allergy 717619543 Active Not Available [facility] 3 02:48:21 Diabetes mellitus 66001507 Active BORDERLIN E Not Available [facility] 3 02:48:21 Fatigue 50834442 Active Not Available [facility] 3 02:48:21 Kidney stone 18591179 Active Not Available [facility] 3 02:48:21 Pain of left knee joint 22432215085 4107 Active 2022 USMAN Hernandez [address], [place] [address], [place], [address] , [facility] 3 08:11:30 Morbid obesity 331008877 Active 2023 USMAN Hernandez [address], [address], [place], [address] , [facility] 4 08:43:25 Problem Notes None recorded. Procedures Surgical History Date Name Laterality Status Provider Name and Address Organization Details Recorded Time 1 ligation of bilateral fallopian tubes completed Not Available [facility] 01/11/2023 02:42:54 0 Date of Last Pap Smear completed Not Available [facility] 01/11/2023 02:42:51 6 delivery completed Not Available [facility] 01/11/2023 02:42:54 Skin Graft completed Not Available [facility] 01/11/2023 02:42:54 Imaging Results None recorded. Procedure [...] mass index (BMI) Body height Oxygen saturation Heart rate Body temperature Body weight Systolic And Diastolic Provider Name and Address Organization Details Last Updated DateTime 3 43.4 kg/m2 162.56 cm 97 % 100 /min 96.6 [degF] 724286. 87 g 126/70 mm[Hg] Not Available [facility] 3 02:45:25 Date Recorded Body height Body mass index (BMI) Body weight Body temperature Heart rate Oxygen saturation Systolic And Diastolic Provider Name and Address Organization Details Last Updated DateTime 4 162.56 cm 43.8 kg/m2 449174. 05 g 98.2 [degF] 90 /min 98.01 % 132/88 mm[Hg] Belinda Person RN [place] [facility] 4 08:38:55 Date Recorded Body mass index (BMI) Body height Oxygen saturation Heart rate Body temperature Body weight Systolic And Diastolic Provider Name and Address Organization Details Last Updated DateTime 2 42.9 kg/m2 162.56 cm 99 % 85 /min 97.1 [degF] 082793. 09 g 128/70 mm[Hg] Not Available [facility] 3 02:45:24 Date Recorded Body height Body mass index (BMI) Body weight Body temperature Heart rate Oxygen saturation Systolic And Diastolic Provider Name and Address Organization Details Last Updated DateTime 3 162.56 cm 42.2 kg/m2 587069. 72 g 95.8 [degF] 68 /min 99 % 122/80 mm[Hg] REANNA Christine Kamran [place] [employer] 3 09:26:33 Date Recorded Body height Body mass index (BMI) Body weight Body temperature Heart rate Oxygen saturation Systolic And Diastolic Provider Name and Address Organization Details Last Updated DateTime 3 162.56 cm 42.4 kg/m2 974149. 32 g 98.5 [degF] 88 /min 97 % 136/80 mm[Hg] REANNA Christine - [place] [facility] [employer] 3 08:06:10 Social History Question Answer Notes LastModified by Leo Details LastModified Time Tobacco Smoking Status Never Smoker Not Available [facility] 01/11/2023 02:35:25 If You Are , What Was Your Level Of Alcohol Consumption Prior To ? None [id number] Information not available 01/11/2023 What Is Your Level Of Caffeine Consumption? Occasional [id number] Information not available 01/11/2023 In The 14 Days Before Symptom Onset, Have You Had Close Contact With A Laboratory-confirm ed COVID-19 While That Case Was Ill? No [id number] Information not available 01/11/2023 In The 14 Days Before Symptom Onset, Have You Had Close Contact With A Person Who Is Under Investigation For COVID-19 While That Person Was Ill? No [id number] Information not available 01/11/2023 What Type Of Diet Are You Following? REGULAR [id number] Information not available 01/11/2023 Which Illicit Or Recreational Drugs Have You Used? No [id number] Information not available 01/11/2023 Do You Have Any Dietary Restrictions? No [id number].[id number] Information not available 01/11/2023 Sex: Unknown Functional Status Question Answer Note LastModified by Leo Details LastModified Time Do you use any illicit or recreational drugs? No [id number].[id number] Information not available 01/11/2023 What is your level of alcohol consumption? Occasional [id number] Information not available 01/11/2023 Do you or have you ever used smokeless tobacco? Never used smokeless tobacco [id number].[id number] 0864 Information not available 01/11/2023 Do you or have you ever used e-cigarettes or vape? Never used electronic cigarettes MIGRATION.[id number] 6704 Information not available 01/11/2023 What is your exercise level? Heavy [id number].[id number] 6810 Information not available 01/11/2023 Mental Status None [...] virus, trivalent, PF 3 completed Not Available [facility] 01/11/2023 02:55:30 pneumococcal, unspecified formulation 2 completed Not Available [facility] 01/11/2023 02:55:31 Influenza, split virus, trivalent, preservative 2 completed Not Available [facility] 01/11/2023 02:55:31 Past Encounters Encounter ID Performer Location Encounter Start Date Encounter Closed Date Diagnosis/Indication Diagnosis SNOMED-CT Code Diagnosis ICD10 Code Diagnosis IMO Codes Diagnosis Note [id number] [facility] ic_[facility]way _ATHENA_M IGRATION_ DEFAULT_1 _1 , 02/03/2021 00:00:00 02/03/2021 10:41:37 [id number] Kalli Ashley MD [facility] Primary Care [facility] [address] [place] [address] 05/05/2021 00:00:00 05/11/2021 13:57:38 [id number] [facility] [address] [place] [address] 09/23/2021 00:00:00 09/23/2021 08:23:43 [id number] CHRISTINE Fuentes [facility] Primary Care [facility] [address] [place] [address] 06/29/2022 00:00:00 06/29/2022 13:37:10 [id number] CHRISTINE Fuentes [facility] Primary [facility] [address] [place] [address] 11/18/2022 00:00:00 11/18/2022 19:16:11 [id number] USMAN Hernandez [facility] Primary [facility] [address] [place] [address] 06/29/2023 09:19:06 06/29/2023 09:51:15 Dietary management surveillance 164879105 Z71.3 Encouraged fresh fruits and veggiesInc rease water intakeGet daily exerciseHa s had good results with Saxenda-wi ll reorder [id number] Kalli Ashley MD [facility] Primary Care [facility] [address] [place] [address] 07/28/2023 08:00:36 07/28/2023 08:16:49 Dietary management surveillance 299949739 Z71.3 No ASE noted with being on this med, pt also used this in the pastRefill of saxenda providedpt would like to f/u in 3 months Pain of le ft knee joint 1823934041 69454 M25.562 r/t recent injury, pt noted large amount of swelling and painf/u with ortho Dr. Crook's office-cor tisone injection cope likely in the future with Dr. Crook [id number] USMAN Hernandez [facility] Primary Care [facility] [address] [facility] [facility] [address] [place] [address] 12/08/2023 08:25:46 12/08/2023 09:25:24 Morbid obesity 578664263 E66.01 -pt has been doing weight watchers for the last month-also does intermitte nt fasting-sh e is planning to start going to the [...] Guarantor Name 02/06/2024 1 [facility] (PPO) Yun Marte [id number] Yun Marte 03/05/2024 1 [facility] (MEDICARE REPLACEMENT/ ADVANTAGE - PPO) Yun Marte [id number] Yun Marte 02/06/2024 1 [employer] (PPO) [id number] Yun Marte [id number] Yun Marte 12/08/2023 1 [employer] (POS) [id number] Neville Maret [id number] Yun Marte 02/06/2024 2 [place] [facility] Yun Smith [id number] Yun Marte Notes Date Note Type Note [...] to restart this med JENNIFER Hernandez-Farooq [address], [address] [facility], [place], [address], [employer] [facility] 06/29/2023 10:06:55 07/28/2023 text/html Pt is here for med f/u JENNIFER Hernandez-Farooq [address], [address], [place], [address], [employer] [facility] 07/28/2023 08:27:09 12/08/2023 text/html Pt is here for weight loss med f/u JENNIFER Hernandez-Farooq [address], [address], [place], [address], [employer] [facility] 12/08/2023 08:53:04 OBGyn Episode No OBEpisode recorded.
[2025-11-12 07:38] LABS: Hematocrit 43.9 % (37.0-47.0); Hemoglobin 14.5 g/dL (12.0-15.0); Immature Granulocyte Percent A 0.5 % (0-0.5); Lymphocytes Absolute Auto 2.92 K/mm3 (0.9-3.2); Mean Corpuscular HGB Conc 33.0 g/dl (32-36); Mean Corpuscular Hemoglobin 29.5 pg (26-34); Mean Corpuscular Volume 89.4 fl (80-100); Nucleated Red Blood Cells Absolute Auto 0.000 K/mm3 (0.0-0.012); Nucleated Red Blood Cells Perc 0.0 % (0.0-0.2); Platelet Count Result 338 k/mm3 (150-375); Red Blood Count 4.91 M/mm3 (4.2-5.4); White Blood Count 10.0 K/mm3 (4.5-10.0)
[2025-11-12 08:06] LABS: Alanine Aminotransferase 14 U/L (6-35); Albumin Level 4.4 g/dL (3.5-5.1); Alkaline Phosphatase 78 U/L (38-126); Anion Gap 7 mmol/L (4-12); Aspartate Amino Transferase 18 U/L (14-36); Bilirubin,Total 0.8 mg/dL (0.2-1.3); Blood Urea Nitrogen 17 mg/dL (7-17); Calcium 9.3 mg/dL (8.4-10.2); Carbon Dioxide 26 mmol/L (22-30); Chloride 105 mmol/L (98-107); Cholesterol 150 mg/dL (0-200); Estimated Glomerular Filt Rate > 60; Glucose 89 mg/dL (65-110); HDL Direct 36 mg/dL; Potassium 4.3 mmol/L (3.4-5.0); Sodium 138 mmol/L (137-145); Total Protein 7.7 g/dL (6.3-8.2); Triglycerides 65 mg/dL (<150)
[2025-11-12 09:43] LABS: Thyroid Stimulating Hormone 2.890 uIU/mL (0.465-4.680)
== END 2025-11-12 07:18 | disposition home or self-care (01) ==
PROVIDERS: PCP Family Medicine; Visit Provider Nurse Practitioner Adult Health
DX: Z13.220 Encounter for screening for lipoid disorders (principal); Z13.29 Encounter for screening for other suspected endocrine disorder; J45.909 Unspecified asthma, uncomplicated
CPT/HCPCS: 36415; 80053; 80061; 84443; 85025